=== PATIENT | female | born 1990 | race Caucasian/White ===

== ENCOUNTER 2025-05-13 14:22 | Outpatient (OUT) | payer OTHER, SELFPAY ==
--- OUTSIDE RECORDS SUMMARY | 2025-04-29 22:52 | XMS_ITS | Encounter Summary ---
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 (04/30/2025 12:02 AM EDT) PROLACTIN 8.2 3.3 - 26.7 ng/mL 04/30/2025 10:24 AM EDT [facility] Blood Venous blood / Unknown 04/30/2025 12:02 AM EDT 04/30/2025 12:05 AM EDT us Lisandro Frank MD LAB BLOOD ORDERABLES Final Res ult [facility] [address] [place] [address], [place] [phone] * Ethanol (04/30/2025 12:02 AM EDT) ETHANOL <0.010 <=0.080 g/dL 04/30/2025 12:24 AM EDT [facility] Comment: This report is intended for use in clinical monitoring or management of patients. Blood Venous blood / Unknown 04/30/2025 12:02 AM EDT 04/30/2025 12:05 AM EDT us Lisandro Frank MD LAB BLOOD ORDERABLES Final Res ult Performing Organization Address City/[facility]/ZIP Co de Phone Number [facility] [address] [place] [address], [place] * (ABNORMAL) Comprehensive metabolic panel (04/30/2025 12:02 AM EDT) SODIUM 136 134 - 146 mmol/L 04/30/2025 12:24 AM EDT [facility] POTASSIUM 3.9 3.5 - 5.0 mmol/L 04/30/2025 12:24 AM EDT [facility] CHLORIDE 109 98 - 109 mmol/L 04/30/2025 12:24 AM EDT [facility] CARBON DIOXIDE 21(L) 22 - 32 mmol/L 04/30/2025 12:24 AM EDT [facility] ANION GAP 6 5 - 15 mmol/L 04/30/2025 12:24 AM EDT [facility] BLOOD UREA NITROGEN 11 5 - 23 mg/dL 04/30/2025 12:24 AM EDT [facility] CREATININE 0.64 0.40 - 1.00 mg/dL 04/30/2025 12:24 AM EDT [facility] Comment:METHOD TRACEABLE TO [facility] STANDARD GLUCOSE 135(H) 65 - 99 mg/dL 04/30/2025 12:24 AM EDT [facility] CALCIUM 8.4(L) 8.5 - 10.5 mg/dL 04/30/2025 12:24 AM EDT [facility] TOTAL PROTEIN 6.6 6.0 - 8.0 g/dL 04/30/2025 12:24 AM EDT [facility] ALBUMIN 3.6 3.2 - 5.3 g/dL 04/30/2025 12:24 AM EDT [facility] ALKALINE PHOSPHATASE 61 39 - 130 U/L 04/30/2025 12:24 AM EDT [facility] AST 29 <=41 U/L 04/30/2025 12:24 AM EDT [facility] ALT 17 <=31 U/L 04/30/2025 12:24 AM EDT [facility] BILIRUBIN,TOTAL 0.4 0.3 - 1.2 mg/dL 04/30/2025 12:24 AM EDT [facility] EGFR Non-Race Dependent >90 >=60 ml/min/1.7 3sq.m 04/30/2025 12:24 AM EDT [facility] Comment: eGFR not reported due to non-numeric value for Creatinine. Reported eGFR is based on the CKD-EPI 202 equation that does not use a race coefficient. Blood Venous blood / Unknown 04/30/2025 12:02 AM EDT 04/30/2025 12:05 AM EDT us Lisandro Frakn MD LAB BLOOD ORDERABLES Final Res ult [facility] [address] [place] [address], [place] * (ABNORMAL) CBC auto differential (04/30/2025 12:02 AM EDT) WBC 9.4 4 - 11 x10E9/L 04/30/2025 12:20 AM EDT [facility] RBC Count 4.13 3.8 - 5.2 X10E12/L 04/30/2025 12:20 AM EDT [facility] Hemoglobin 13.2 11.7 - 15.5 g/dL 04/30/2025 12:20 AM EDT [facility] Hematocrit 39.1 35 - 47 % 04/30/2025 12:20 AM EDT [facility] MCV 95 80 - 100 fL 04/30/2025 12:20 AM EDT [facility] MCH 32.1 27 - 34 pg 04/30/2025 12:20 AM EDT [facility] MCHC 33.8 32 - 36 g/dL 04/30/2025 12:20 AM EDT [facility] RDW 13.2 11.5 - 15 % 04/30/2025 12:20 AM EDT [facility] Platelet Count 178 150 - 450 X10E9/L 04/30/2025 12:20 AM EDT [facility] MPV 9.1 7 - 12 fL 04/30/2025 12:20 AM EDT [facility] Neutrophils % 69.8 % 04/30/2025 12:20 AM EDT [facility] Lymphocytes % 18.3 % 04/30/2025 12:20 AM EDT [facility] Monocytes % 10.6 % 04/30/2025 12:20 AM EDT [facility] Eosinophils % 1.0 % 04/30/2025 12:20 AM EDT [facility] Basophils % 0.3 % 04/30/2025 12:20 AM EDT [facility] Neutrophils Absolute (A) 6.5 1.5 - 6.6 10*3/uL 04/30/2025 12:20 AM EDT [facility] Lymphocytes Absolute 1.7 1.0 - 3.5 10*3/uL 04/30/2025 12:20 AM EDT [facility] Monocytes Absolute 1.0(H) 0.0 - 0.9 10*3/uL 04/30/2025 12:20 AM EDT [facility] Eosinophils Absolute 0.1 0.0 - 0.4 10*3/uL 04/30/2025 12:20 AM EDT [facility] Basophils Absolute 0.0 0.0 - 0.2 10*3/uL 04/30/2025 12:20 AM EDT [facility] Differential Type AUTOMATED DIFFERENTIAL 04/30/2025 12:20 AM EDT [facility] Blood Venous blood / Unknown 04/30/2025 12:02 AM EDT 04/30/2025 12:05 AM EDT Lisandro Frank MD LAB BLOOD ORDERABLES Final Res ult [facility] [address] [place] [address], [place] * ECG 12 lead (04/29/2025 11:05 PM EDT) 04/29/2025 11:0 5 PM EDT Narrative [facility] - 04/30/2025 10:43 PM EDT Lisandro Frank MD ECG ORDERABLES Final Result [facility] documented in this encounter Visit Diagnoses Diagnosis Syncope, unspecified syncope type- Primary Seizure after head injury (CMS-HCC) Seizure after head injury (CMS-HCC) documented in this encounter Administered Medications Inactive Administered Medications - up to 3 most recent administrations Medication Order MAR Action Action Date Dose Rate Site ketorolac (TORADOL) injection 30 mg 30 mg, intravenous, Once, On Mon04/30/25 at 0045, For 1 dose, Look-alike/sound-alike medication - verify indication for use. Duration of therapy is not to exceed 5 days. Maximum recommended dose + 120mg/24 hours. Given 04/30/2025 1:00 AM EDT 30 mg LORazepam (ATIVAN) injection 1 mg 1 mg, intravenous, Once, On Mon04/29/25 at 2345, For 1 dose, Look-alike/sound-alike medication - verify indication for use;IV use requires increased monitoring of HR,BP,Respirations and Pulse Oximetry;For IV-dilute with equal volume PF sod chloride, Indication: Agitation Given 04/29/2025 11:52 PM EDT 1 mg sodium chloride 0.9 % bolus 1,000 mL, intravenous, at 984 mL/hr, Administer over 61 Minutes, Once, On Mon04/29/25 at 2345, For 1 dose New Bag 04/30/2025 12:18 AM EDT 1,000 mL 984 mL/hr documented in this encounter Active and Recently Administered Medications Times are shown in EDT. Scheduled Medication Order 04/28/2025 04/29/2025 04/30/2025 ketorolac (TORADOL) injection 30 mg (COMPLETED) 30 mg, intravenous, Once, On Mon04/30/25 at 0045, For 1 dose, Look-alike/sound-alike medication - verify indication for use. Duration of therapy is not to exceed 5 days. Maximum recommended dose + 120mg/24 hours. 0100 (Given - Provid er: Annette Marroquin RN) LORazepam (ATIVAN) injection 1 mg (COMPLETED) 1 mg, intravenous, Once, On Mon04/29/25 at 2345, For 1 dose, Look-alike/sound-alike medication - verify indication for use;IV use requires increased monitoring of HR,BP,Respirations and Pulse Oximetry;For IV-dilute with equal volume PF sod chloride, Indication: Agitation 2351 (Given - Provider: Margot Lozano, SLOANE) sodium chloride 0.9 % bolus (COMPLETED) 1,000 mL, intravenous, at 984 mL/hr, Administer over 61 Minutes, Once, On Mon04/29/25 at 2345, For 1 dose 0018 (New Bag - Provider: Margot Lozano RN)0124 (Stop Bag - Provider: Margot Lozano RN) documented in this encounter Additional Health Concerns Assessment Noted Time PHQ-9 Depression Total Score: 0 04/21/20 25 8:38 AM EDT documented as of this encounter Care Teams Central Service Technician Relationship Specialty Start Date End Date Maria Elena Sanchez APRN-ALBERT PCP - General Nurse Practitioner 11/04/24 documented as of this encounter
--- OUTSIDE RECORDS SUMMARY | 2025-05-05 14:30 | XMS_ITS | Encounter Summary ---
Author Organization [employer] Address [facility] [id number] [address] [place] [address] Care Team Providers Care Broadcast Producer Name Role Phone Maria Elena Sanchez APRN-ALBERT Primary Care Provider Reason for Referral * Consultation (Urgent) - Pending Review Specialty Diagnoses / Procedures Referred By Contac t Referred To Contact Neurology Diagnoses Witnessed seizure-like activity (CMS-HCC) Gregory Muñoz DO [address] [facility] [address], [place] [address] Phone: tel: fax: Jeanine Geiger MD [address] [place] [phone] Phone: tel: fax: Referral ID Status Reason Start Date Expiration Date Visits Requested Visits Authorized [id number] Pending Review Specialty Services Required 05/05/2025 05/05/2026 1 1 Reason for Visit * Reason Comments Er Follow-up seizure Encounter Details Date Type Department Care Team (Late st Contact Info) Description 05/05/2025 2:30 PM EDT Office Visit [facility] [address] [place] [address] Gregory Muñoz DO [address] [facility] [address], [place], [place] [id number] Witnessed seizure-like activity (CMS-HCC) (Primary Dx); Yeast infection; Facial dermatitis Social History Tobacco Use Types Packs/Day Years [...] 08/16/2024 PHQ-2 Answer Date Recorded Total Score 1 05/05/2025 PRAPARE - Transportation Answer Date Re corded [...] got money to buy more. Never True 05/05/2025 Within the past 12 months th e food we bought just didn't last and we didn't have money to get more. Never True 05/05/2025 Purpose - Life Answer Date Recorded Purpose [...] Sign Reading Time Taken Comments Blood Pressure 134/82 05/05/2025 2:47 PM EDT Pulse 83 05/05/2025 2:47 PM EDT Temperature 36.9 C (98.5 F) 05/05/2025 2:47 PM EDT Respiratory Rate - - Oxygen Saturation 99% 05/05/2025 2:47 PM EDT Inhaled Oxygen Concentration - - Weight 65.6 kg (144 lb 9.6 oz) 05/05/2025 2:47 P M EDT Height - - Body Mass Index 21.99 04/29/2025 10:55 PM EDT documented in this encounter Progress Notes * Gregory Muñoz, - 05/05/2025 2:30 PM EDT Images from the original note were not included. [facility] [address] [place] [address] [place] [address] Patient: Annia Lopez Date of : 1990 Encounter Date: 05/05/2025 Subjective: Chief Complaint Chief Complaint Patient presents with Er Follow-up seizure History of Present Illness Annia Lopez is a 35 y.o. female, established patient, that presents to the office for ED follow up for seizure. History provided by patient. Seizures This is a recurrent (Patient with a total of 3 episodes of seizure like activity with last episode occurring about 5 yrs ago and 1st about 5 yrs prior to that) problem. Episode onset: Last seizure on04/29/25. There were 2 to 3 seizures. Associated symptoms include headaches (Has been having headaches since she struck her head during seizure). Characteristics include loss of consciousness and bit tongue. Characteristics do not include bowel incontinence or bladder incontinence. 14 yr old daughter states that she was foaming at the mouth. She did fall off the bed striking her head The episode was Witnessed. There was The sensation of an aura present (Just prior to seizure she noticed that sensation of things flashing in front of her face. occurs just prior to seizure). There has been no fever. Review of Systems Review of Systems Gastrointestinal: Negative for bowel incontinence. Genitourinary: Negative for bladder incontinence. Neurological: Positive for seizures, loss of consciousness and headaches (Has been having headachessince she struck her head during seizure). Psychiatric/Behavioral: Had been having reaction with increase in amitriptyline as she decreased dose to 10 mg nightly and then increased dose which was causing tremors and difficulty sleeping. She states that Vital Signs BP 134/82 (BP Site: Right Arm, BP Postition: Sitting) Pulse 83 Temp 36.9 °C (98.5 °F) (Oral) Wt 65.6 kg (144 lb 9.6 oz) LMP 04/15/2025 (Exact Date) SpO2 99% BMI 21.99 kg/m² Physical Exam Physical Exam Vitals reviewed. Constitutional: General: She is not in acute distress. Appearance: She is not ill-appearing or toxic-appearing. HENT: Head: Normocephalic and atraumatic. Eyes: General: No scleral icterus. Extraocular Movements: Extraocular movements intact. Right eye: Normal extraocular motion and no nystagmus. Left eye: Normal extraocular motion and no nystagmus. Conjunctiva/sclera: Conjunctivae normal. Neck: Vascular: No carotid bruit. Cardiovascular: Rate and Rhythm: Normal rate and regular rhythm. Heart sounds: No murmur heard. Pulmonary: Effort: Pulmonary effort is normal. No accessory muscle usage or respiratory distress. Breath sounds: Normal breath sounds. No decreased breath sounds, wheezing, rhonchi or rales. Musculoskeletal: Cervical back: Neck supple. Lymphadenopathy: Cervical: No cervical adenopathy. Neurological: General: No focal deficit present. Mental Status: She is alert. GCS: GCS eye subscore is 4. GCS verbal subscore is 5. GCS motor subscore is 6. Cranial Nerves: No cranial nerve deficit or facial asymmetry. Motor: No weakness, tremor or abnormal muscle tone. Deep Tendon Reflexes: Reflex Scores: Tricep reflexes are 2+ on the right side and 2+ on the left side. Bicep reflexes are 2+ on the right side and 2+ on the left side. Brachioradialis reflexes are 2+ on the right side and 2+ on the left side. Past Medical, Family, Surgery and Social History Past Medical History: Diagnosis Date Allergic Anxiety Back pain Constipation during in second trimester 11/07/2017 Crohn disease ([facility]-HCC) Generalized anxiety disorder with panic attacks 09/11/2023 History of UTI 11/07/2017 Major depressive disorder Mild intermittent asthma with acute exacerbation 09/11/2023 Mild tetrahydrocannabinol (THC) abuse 11/28/2017 PONV (postoperative nausea and vomiting) PTSD (post-traumatic stress disorder) Seizures (CMS-HCC) Past Surgical History: Procedure Laterality Date ABCESS DRAINAGE APPENDECTOMY COLONOSCOPY BIOPSY N/A 09/24/2024 Performed by Faisal Garay MD at [facility] ENDOSCOPY HEMORRHOIDECTOMY N/A 09/19/2019 Performed by Gregory Weller DO at [facility] for abscess Family History Problem Relation Age of Onset Seizures Mother Endometriosis Mother Hypertension Father Hyperlipidemia Father Diabetes Maternal Grandmother Social History Socioeconomic History Marital status: Single Spouse name: Not on file Number of children: Not on file Years of education: Not on file Highest education level: Not on file Occupational History Not on file Tobacco Use Smoking status: Former Current packs/day: 0.00 Types: Cigarettes Smokeless tobacco: Never Tobacco comments: Currently vapes Vaping Use Vaping status: Every Day Substances: Nicotine Devices: Disposable Substance and Sexual Activity Alcohol use: Yes Comment: occcasional Drug use: No Sexual activity: Yes Partners: Male control/protection: None Other Topics Concern Not on file Social History Narrative Not on file Social Drivers of Health Financial Resource Strain: Medium Risk (08/16/2024) Overall Financial Resource Strain (CARDIA) Difficulty of Paying Living Expenses: Somewhat hard Food Insecurity: No Food Insecurity (05/05/2025) Hunger Screening Food Insecurity - Worry: Never True Food Insecurity - Inability: Never True Transportation Needs: No Transportation Needs (08/16/2024) PRAPARE - Transportation Lack of Transportation (Medical): No Lack of Transportation (Non-Medical): No Physical Activity: Not on file Stress: Not on file Social Connections: Not on file Interpersonal Safety: Not on file Housing Instability: Low Risk (08/16/2024) Housing Instability Housing Instability: No Allergies and Current Medications No Known Allergies Current Outpatient Medications on File Prior to Visit Medication Sig acetaminophen (TYLENOL EXTRA STRENGTH) 500 mg tablet Take 2 tablets (1,000 mg total) by mouth every6 (six) hours as needed for pain. albuterol (PROVENTIL HFA;VENTOLIN HFA) 90 mcg/actuation inhaler Inhale 2 puffs as needed. amitriptyline (ELAVIL) 25 mg tablet Take 1 tablet (25 mg total) by mouth nightly. hyoscyamine (LEVSIN) 0.125 mg SL tablet DISSOLVE 1 TABLET(125 MCG) UNDER THE TONGUE EVERY 4 HOURS NEEDED FOR CRAMPING ibuprofen (MOTRIN) 800 mg tablet Take 1 tablet (800 mg total) by mouth every 6 (six) hours as needed for pain. loratadine (CLARITIN) 10 mg tablet Take 1 tablet (10 mg total) by mouth in the morning. loratadine-pseudoephedrine (CLARITIN-D 24-hour) 10-240 mg per 24 hr tablet Take 1 tablet by mouth in the morning. LORazepam (ATIVAN) 0.5 mg tablet Take 1 tablet (0.5 mg total) by mouth every 8 (eight) hours as needed for anxiety for up to 14 days. ondansetron ODT (ZOFRAN ODT) 4 mg disintegrating tablet Dissolve 1 tablet (4 mg total) on tongue every 8 (eight) hours as needed for nausea for up to 10 doses. phenazopyridine (PYRIDIUM) 100 mg tablet Take 1 tablet (100 mg total) by mouth 3 (three) times a day as needed. zolpidem (AMBIEN) 5 mg tablet Take 1 tablet (5 mg total) by mouth nightly as needed for sleep. No current facility-administered medications on file prior to visit. Labs and Imaging Lab Results Component Value Date WBC 9.4 04/30/2025 HGB 13.2 04/30/2025 HCT 39.1 04/30/2025 PLT 178 04/30/2025 ALT 17 04/30/2025 AST 29 04/30/2025 K 3.9 04/30/2025 CL 109 04/30/2025 CREATININE 0.64 04/30/2025 BUN 11 04/30/2025 CO2 21 (L) 04/30/2025 TSH 0.30 (L) 02/18/2020 CT brain without contrast STUDY: CT BRAIN WO CONT INDICATION: seizure. [...] cells are broadly clear. No evidence of aggressiveosseous lesion. IMPRESSION: * No acute intracranial abnormality, by CT. Epileptogenic foci are better assessed with MRI if clinically warranted. Approved by Resident Pavan Sahni MD on 04/30/2025 12:24 AM I, Matty Woodard MD have personally reviewed the image(s) and agree with and/or edited the report Finalized by Matty Woodard MD on 04/30/2025 12:28 AM Assessment/Plan: 1. Witnessed seizure-like activity (CMS-HCC) - [facility] [place], [place]; Future 2. Yeast infection - fluconazole (DIFLUCAN) 150 mg tablet; Take 1 tablet (150 mg total) by mouth once for 1 dose. Repeat again in 4 days Dispense: 1 tablet; Refill: 0 3. Facial dermatitis - hydrocortisone (HYTONE) 1 % cream; Apply 1 Application topically in the morning and 1 Applicationbefore bedtime. Do all this for 7 days. Dispense: 20 g; Refill: 1 Yeast infection Prescribed fluconazole 150 mg 1 tablet x1 dose. Repeat in 4 days if symptoms still present As patient had recently been on antibiotics Facial dermatitis Apply 1% hydrocortisone cream topically to face twice daily for 7 days and then stop medication Witnessed seizure-like activity (CMS-HCC) Patient with seizure-like activity and was evaluated in the emergency room on May 01, 2025. This is patient's third episode of of seizure-like activity in the past 15 years. Patient with scheduled EEG tomorrow. Discussed with patient that as this is the third episode she would benefit from seeing Neurology to help determine whether prophylaxis with seizure medication would be beneficial. Follow-up: Keep June 20, 2025 appointment - Gregory Muñoz DO 05/05/25 5:13 PM documented in this encounter Miscellaneous Notes * Assessment & Plan Note - Gregory Muñoz DO - 05/05/2025 5:13 PM EDT Associated Problem(s): Witnessed seizure-like activity (CMS-HCC) Patient with seizure-like activity and was evaluated in the emergency room on May 01, 2025. This is patient's third episode of of seizure-like activity in the past 15 years. Patient with scheduled EEG tomorrow. Discussed with patient that as this is the third episode she would benefit from seeing Neurology to help determine whether prophylaxis with seizure medication would be beneficial. * Assessment & Plan Note - Gregory Muñoz DO - 05/05/2025 5:10 PM EDT Associated Problem(s): Facial dermatitis Apply 1% hydrocortisone cream topically to face twice daily for 7 days and then stop medication * Assessment & Plan Note - Gregory Muñoz DO - 05/05/2025 5:09 PM EDT Associated Problem(s): Yeast infection Prescribed fluconazole 150 mg 1 tablet x1 dose. Repeat in 4 days if symptoms still present As patient had recently been on antibiotics documented in this encounter Plan of Treatment Upcoming Encounters Date Type Department Care Team (Late st Contact Info) Description 05/14/2025 1:00 PM EDT Office Visit [facility] [place] [address] [place] [address] Gibran Garrett, ISHA [address] [facility] [address] [place] [id number] 06/20/2025 9:20 AM EDT Telemedicine [facility] [address] [place] [address] Maria Elena Sanchez APRN-CNP [address] [place] [id number] Scheduled Referrals Name Type Priority Associated Diagnoses Order Schedule [facility] [place], [place] Outpatient Referral Routine Witnessed seizure-like activity ([facility]-HCC) 1 Occurrences starting 05/05/2025 until 05/05/2026 documented as of this encounter Visit Diagnoses Diagnosis Witnessed seizure-like activity (CMS-HCC)- Primary Yeast infection Facial dermatitis documented in this encounter Additional Health Concerns Assessment Noted Time PHQ-9 Depression Total Score: 1 05/05/20 25 2:45 PM EDT documented as of this encounter Care Teams Broadcast Producer Relationship Specialty Start Date End Date Maria Elena Sanchez APRN-ALBERT PCP - General Nurse Practitioner 11/04/24 documented as of this encounter
--- OUTSIDE RECORDS SUMMARY | 2025-05-06 13:00 | XMS_ITS | Encounter Summary ---
Author Organization [facility] tem Address [facility] [id number] [address] [place] [address] Care Team Providers Care Control Room Operator Name Role Phone Maria Elena Sanchez APRN-GLACIOLOGIST Primary Care Provider Reason for Referral * Neurology (Routine) - Pending Review Specialty Diagnoses / Procedures Referred By Contac t Referred To Contact Diagnoses Seizure after head injury ([facility]) Procedures EEG Amadeo Dumont MD [address] [place] [address] Phone: tel: fax: Referral ID Status Reason Start Date Expiration Date V isits Requested Visits Authorized [id number] Pending Review 04/30/2025 04/30/2026 1 1 Reason for Visit * Neurology (Routine) - Pending Review Specialty Diagnoses / Procedures Referred By Contac t Referred To Contact Diagnoses Seizure after head injury ([facility]) Procedures EEG Amadeo Dumont MD [address] [place] [address] Phone: tel: fax: Referral ID Status Reason Start Date Expiration Date V isits Requested Visits Authorized [id number] Pending Review 04/30/2025 04/30/2026 1 1 Encounter Details Date Type Department Care Team (Latest Contact Info) Description 05/06/2025 1:00 PM EDT - 05/06/2025 11:59 PM EDT Hospital Encounter [facility] - Neurophysiology [address] [place] [phone] Amadeo Dumont MD [address] [place] [address] Seizure after head injury ([facility]) Discharge Disposition: Home Social History Tobacco Use [...] PM EDT documented as of this encounter Medications at Time of Discharge [...] as needed for sleep. 30 tablet 04/14/2025 hydrocortisone (HYTONE) 1 % creamIndications:Fa cial dermatitis Apply 1 Application topically in the morning and 1 Application before bedtime. Do all this for 7 days. 20 g 1 05/05/2025 05/12/20 25 documented as of this encounter Plan of Treatment Upcoming Encounters Date Type Department Care Team (Late st Contact Info) Description 05/14/2025 1:00 PM EDT Office Visit [facility] [place] [address] [place] [phone] Gibran Garrett PA-C [address] [facility] [address] [place] [address] 06/20/2025 9:20 AM EDT Telemedicine [facility] [address] [place] [address] [address] Maria Elena Sanchez, MANAGER TRADING-GLACIOLOGIST [address] [place] [address] documented as of this encounter Procedures Procedure Name Priority Date/Time Associated Diagnosis Comments EEG Routine 05/06/2025 2:35 PM EDT Seizure after head injury (CMS-HCC) documented in this encounter Results * EEG (05/06/2025 2:35 PM EDT) Narrative MANUALLY TRANSCRIBED RESULTS - 05/06/2025 2:52 PM EDT Images from the original result were not included. [place] Routine EEG Report Length of Study: 30 [...] Clinical correlation is recommended. Kylah Motley MD [place] Neu[facility] us Amadeo Dumont MD NEUROLOGY ORDERABLES Final Resu lt MANUALLY TRANSCRIBED RESULTS documented in this encounter Visit Diagnoses Diagnosis Seizure after head injury (CMS-HCC) documented in this encounter Additional Health Concerns Assessment Noted Time PHQ-9 Depression Total Score: 1 05/05/20 25 2:45 PM EDT documented as of this encounter Care Teams Control Room Operator Relationship Specialty Start Date End Date Maria Elena Sanchez APRN-CNP PCP - General Nurse Practitioner 11/04/24 documented as of this encounter
--- OUTSIDE RECORDS SUMMARY | 2025-05-13 14:31 | XMS_ITS | Encounter Summary ---
Author Organization [employer] tem Address [id number] [address] [place] [address] Care Team Providers Care Rn Telephone Triage Name Role Phone Maria Elena Sanchez LOAD HAUL DUMP OPERATOR-LOGGING SPECIALIST Primary Care Provider Reason for Visit * Reason Comments Med Refill Encounter Details Date Type Department Care Team (Late st Contact Info) Description 11/11/2024 Refill [facility] [address] [place] [address] Maria Elena Sanchez APRN-CNP [address], [facility] [place] [address] Psychophysiological insomnia Social History Tobacco Use Types Packs/Day Years [...] 08/16/2024 PHQ-2 Answer Date Recorded Total Score 9 08/16/2024 PRAPARE - Transportation Answer Date Re corded [...] got money to buy more. Never True 11/04/2024 Within the past 12 months th e food we bought just didn't last and we didn't have money to get more. Never True 11/04/2024 Purpose - Life Answer Date Recorded Purpose and direction in life Unknown Comments No Sex and Gender Information Value Date Recorded Sex Assigned at Female 02/08/2024 9:42 PM EDT Legal Sex Female 1:40 PM EDT Gender Identity Female 02/08/2024 9:42 PM EDT Sexual Orientation Straight 02/08/2024 9: 42 PM EDT documented as of this encounter Plan of Treatment Upcoming Encounters Date Type Department Care Team (Late st Contact Info) Description 05/14/2025 1:00 PM EDT Office Visit [facility] [place] [address] [place] [address] Gibran Garrett, PA-C [address] [facility] [address] [place] [phone] 06/20/2025 9:20 AM EDT Telemedicine [facility] [address] [place] [address] Maria Elena Sancehz APRN-CNP [address] [place] [address] documented as of this encounter Visit Diagnoses Diagnosis Psychophysiological insomnia Persistent disorder of initiating or maintaining sleep documented in this encounter Additional Health Concerns Assessment Noted Time PHQ-9 Depression Total Score: 9 08/16/20 24 8:57 AM EDT documented as of this encounter Care Teams Rn Telephone Triage Relationship Specialty Start Date End Date Maria Elena Sanchez APRN-CNP PCP - General Nurse Practitioner 11/04/24 documented as of this encounter
--- OUTSIDE RECORDS SUMMARY | 2025-05-13 14:31 | XMS_ITS | Encounter Summary ---
Author Organization [employer] tem Address [id number] [address] [place] [address] Care Team Providers Care Adult High School Instructor Name Role Phone Maria Elena Sanchez APRN-COTTON JAMMER Primary Care Provider Encounter Details Date Type Department Care Team (Late st Contact Info) Description 08/06/2024 Telephone [facility] [address] [address] [place] [address] Nida Dodge CMA Social History Tobacco Use Types Packs/Day Years Used Date Smoking Tobacco: Former Cigarettes Smokeless Tobacco: Never Alcohol Use Standard Drinks/Week Comments No 0 (1 standard drink = 0.6 oz pur e alcohol) occcasional PHQ-2 Answer Date Recorded Total Score 9 01/22/2024 Childcare Answer Date Recorded Childcare Unknown 04/15/2019 Employment Answer Date Recorded Employment Unknown 04/15/2019 Hunger Screening Answer Date Recorded Within the past 12 months we worried whether our food would run out before we got money to buy more. Never True 07/26/2024 Within the past 12 months th e food we bought just didn't last and we didn't have money to get more. Never True 07/26/2024 Purpose - Life Answer Date Recorded Purpose and direction in life Unknown Comments No Sex and Gender Information Value Date Recorded Sex Assigned at Female 02/08/2024 9:42 PM EDT Legal Sex Female 1:40 PM EDT Gender Identity Female 02/08/2024 9:42 PM EDT Sexual Orientation Straight 02/08/2024 9: 42 PM EDT documented as of this encounter Miscellaneous Notes * Telephone Encounter - Nida Dodge CMA - 08/06/2024 3:47 PM EDT Patient called to reschedule her colonoscopy due unable to take time off work Please Cancel colonoscopy for 08/08/2024 She would like to reschedule in about 3-4 weeks * Telephone Encounter - Denise Christy - 08/06/2024 3:47 PM EDT CLN 08/08 removed from schedule, lvm for pt to call to reschedule * Telephone Encounter - Denise Christy - 08/06/2024 3:47 PM EDT Lvm for pt to reschedule colonoscopy * Telephone Encounter - Denise Christy - 08/06/2024 3:47 PM EDT Left message for pt to call to reschedule colonoscopy * Telephone Encounter - Denise Christy - 08/06/2024 3:47 PM EDT CLN ASA 2 (ENDO) rescheduled with pt over the phone, 09/19/24 9:30am, updated instructions sen to pt mychart, prep sent to Linsey Crawfordt. documented in this encounter Plan of Treatment Upcoming Encounters Date Type Department Care Team (Late st Contact Info) Description 05/14/2025 1:00 PM EDT Office Visit [facility] [place] [address] [place] [address] Gibran Garrett, PA-C [address], [address] [place] [address] 06/20/2025 9:20 AM EDT Telemedicine [facility] [address] [place] [address] Maria Elena Sanchez APRN-CNP [address] [place] [address] documented as of this encounter Visit Diagnoses Not on filedocumented in this encounter Additional Health Concerns Infection Onset Date Last Indicated Resolved Time COVID-19 Rule-Out 10/04/2024 10/04/2024 10/04/2024 11:15 AM EST Assessment Noted Time PHQ-9 Depression Total Score: 9 01/22/20 11:20 AM EDT documented as of this encounter Care Teams Adult High School Instructor Relationship Specialty Start Date End Date Maria Elena Sanchez APRN-CNP PCP - General Nurse Practitioner 11/04/24 documented as of this encounter
--- OUTSIDE RECORDS SUMMARY | 2025-05-13 14:31 | XMS_ITS | Encounter Summary ---
Author Organization [employer] tem Address [id number] [address] [place] [address] Care Team Providers Care Risk Management Internship Name Role Phone Maria Elena Sanchez APRN-GREASE REFINING SUPERVISOR Primary Care Provider Encounter Details Date Type Department Care Team (Late st Contact Info) Description 08/01/2024 Orders Only [facility] [address] [place] [address] Macrina Martinez RMA Right shoulder pain, unspecified chronicity Social History Tobacco Use Types Packs/Day Years [...] PM EDT Office Visit [facility] [place] [address] [place] [phone] Gibran Garrett PA-C [address] [facility] [address] [place] [address] 06/20/2025 9:20 AM EDT Telemedicine [facility] [address] [facility] [address] Maria Elena Sanchez APRN-CNP [address] [place], [place] [address] documented as of this encounter Procedures Procedure Name Priority Date/Time Associated Diagnosis Comments AMB REFERRAL TO ORTHOPEDIC SURGERY Routine 07/24/2024 Right shoulder pain, unspecified chronicity documented in this encounter Results * Ambulatory referral to Orthopedic Surgery (07/24/2024) 07/24/2024 Maria Elena LUND OUTPATIENT REFERRAL ORD ERABLES Final Result MANUALLY TRANSCRIBED RESULTS documented in this encounter Visit Diagnoses Diagnosis Right shoulder pain, unspecified chronicity documented in this encounter Additional Health Concerns Infection Onset Date Last Indicated Resolved Time COVID-19 Rule-Out 10/04/2024 10/04/2024 10/04/2024 11:15 AM EST Assessment Noted Time PHQ-9 Depression Total Score: 9 01/22/20 11:20 AM EDT documented as of this encounter Care Teams Risk Management Internship Relationship Specialty Start Date End Date Maria Elena Sanchez APRN-CNP PCP - General Nurse Practitioner 11/04/24 documented as of this encounter
--- OUTSIDE RECORDS SUMMARY | 2025-05-13 14:31 | XMS_ITS | Encounter Summary ---
Author Organization [employer] tem Address [id number] [address] [place] [address] Care Team Providers Care Executive Services Administrator Name Role Phone Maria Elena Sanchez APRN-TRUST CLERK Primary Care Provider Encounter Details Date Type Department Care Team (Late st Contact Info) Description 07/04/2024 Telephone [employer] [facility] [address] [place] [address] [place] [address] Meeta Cosme CNA Social History Tobacco Use Types Packs/Day Years [...] got money to buy more. Never True 10/16/2023 Within the past 12 months th e food we bought just didn't last and we didn't have money to get more. Never True 10/16/2023 Purpose - Life Answer Date Recorded Purpose and direction in life Unknown Comments Unknown Sex and Gender Information Value Date Recorded Sex Assigned at Female 02/08/2024 9:42 PM EDT Legal Sex Female 1:40 PM EDT Gender Identity Female 02/08/2024 9:42 PM EDT Sexual Orientation Straight 02/08/2024 9: 42 PM EDT documented as of this encounter Miscellaneous Notes * Telephone Encounter - Meeta Cosme CNA - 07/04/2024 3:33 PM EDT Annia called office to inform provider that while in ER a month ago they recommended a referral tospecialist for her colon. And she went to ER for Rt shoulder pain and is wanting to know if a referral can be placed for this pain or if provider would like to see her to evaluate I. Please Advise. * Telephone Encounter - ASHELY Nash - 07/04/2024 3:33 PM EDT Referrals placed documented in this encounter Plan of Treatment Upcoming Encounters Date Type Department Care Team (Late st Contact Info) Description 05/14/2025 1:00 PM EDT Office Visit [facility] [place] [address] [place] [address] Gibran Garrett, ISHA [address] [facility] [address] [place] [address] 06/20/2025 9:20 AM EDT Telemedicine [facility] [address] [place] [address] Maria Elena Sanchez APRN-CNP [address] [place] [address] documented as of this encounter Visit Diagnoses Not on filedocumented in this encounter Additional Health Concerns Infection Onset Date Last Indicated Resolved Time COVID-19 Rule-Out 10/04/2024 10/04/2024 10/04/2024 11:15 AM EST Assessment Noted Time PHQ-9 Depression Total Score: 9 01/22/20 24 11:20 AM EDT documented as of this encounter Care Teams Executive Services Administrator Relationship Specialty Start Date End Date Maria Elena Sanchez APRN-CNP PCP - General Nurse Practitioner 11/04/24 documented as of this encounter
--- OUTSIDE RECORDS SUMMARY | 2025-05-13 14:31 | XMS_ITS | Encounter Summary ---
Author Organization [employer] tem Address [facility] [id number] [address] [place] [address] Care Team Providers Care Marbleizing Machine Tender Name Role Phone Maria Elena Sanchez JARAD-THIRD HELPER Primary Care Provider Encounter Details Date Type Department Care Team (Late st Contact Info) Description 10/22/2024 Refill [facility] [address] [place] [address] [place] [address] Vicki Lemus CMA Generalized anxiety disorder with panic attacks Social History Tobacco Use Types Packs/Day Years [...] got money to buy more. Never True 10/04/2024 Within the past 12 months th e food we bought just didn't last and we didn't have money to get more. Never True 10/04/2024 Purpose - Life Answer Date Recorded Purpose [...] PM EDT Office Visit [facility] [address] [phone] Gibran Garrett, LEWISC [address] [facility] [address] [place] [address] 06/20/2025 9:20 AM EDT Telemedicine [facility] [address] [place] [address] Maria Elena Sanchez APRN-CNP [address] [place] [address] documented as of this encounter Visit Diagnoses Diagnosis Generalized anxiety disorder with panic attacks documented in this encounter Additional Health Concerns Assessment Noted Time PHQ-9 Depression Total Score: 9 08/16/20 24 8:57 AM EDT documented as of this encounter Care Teams Marbleizing Machine Tender Relationship Specialty Start Date End Date Maria Elena Sanchez APRN-CNP PCP - General Nurse Practitioner 11/04/24 documented as of this encounter
--- OUTSIDE RECORDS SUMMARY | 2025-05-13 14:32 | XMS_ITS | Encounter Summary ---
Author Organization [employer] tem Address [id number] [address] [place] [address] Care Team Providers Care Business Systems Manager Name Role Phone Maria Elena Sanchez JARAD-SENIOR BENEFITS SPECIALIST Primary Care Provider Encounter Details Date Type Department Care Team (Latest Contact Info) Description 05/04/2025 Travel Social History Tobacco Use Types Packs/Day Years [...] PM EDT Office Visit [facility] [place] [address] [place] [phone] Gibran Garrett PA-C [address] [facility] [address] [place] [address] 06/20/2025 9:20 AM EDT Telemedicine [facility] [address] [place] [address] Maria Elena Sanchez APRN-CNP [address] [place] [address] documented as of this encounter Visit Diagnoses Not on filedocumented in this encounter Additional Health Concerns Assessment Noted Time PHQ-9 Depression Total Score: 0 04/21/20 25 8:38 AM EDT documented as of this encounter Care Teams Business Systems Manager Relationship Specialty Start Date End Date Maria Elena aSnchez APRN-CNP PCP - General Nurse Practitioner 11/04/24 documented as of this encounter
--- OUTSIDE RECORDS SUMMARY | 2025-05-13 14:32 | XMS_ITS | Encounter Summary ---
Author Organization [facility] [employer] tem Address [id number] [address] [place] [address] Care Team Providers Care Roadway Engineer Name Role Phone Maria Elena Sanchez APRN-CHARGE LPN Primary Care Provider Reason for Visit * Reason Onset Date Comments Med Refill 04/04/2025 Encounter Details Date Type Department Care Team (Late st Contact Info) Description 04/04/2025 Refill [facility] [address] [place] [address] Maria Elena Sanchez APRN-CNP [address], [facility] [place] [address] Social History Tobacco Use Types Packs/Day Years [...] PHQ-2 Answer Date Recorded Total Score 0 03/24/2025 PRAPARE - Transportation Answer Date Re corded [...] got money to buy more. Never True 03/24/2025 Within the past 12 months th e food we bought just didn't last and we didn't have money to get more. Never True 03/24/2025 Purpose - Life Answer Date Recorded Purpose [...] PM EDT Office Visit [facility] [place] [address] [place] [address] Gibran Garrett, ISHA [address] [facility] [address] [place] [address] 06/20/2025 9:20 AM EDT Telemedicine [facility] [address] [facility] [place] [address] Maria Elena Sanchez APRN-CNP [address] [place] [address] documented as of this encounter Visit Diagnoses Not on filedocumented in this encounter Additional Health Concerns Assessment Noted Time PHQ-9 Depression Total Score: 0 03/24/20 25 10:16 AM EDT documented as of this encounter Care Teams Roadway Engineer Relationship Specialty Start Date End Date Maria Elena Sanchez APRN-CNP PCP - General Nurse Practitioner 11/04/24 documented as of this encounter
--- OUTSIDE RECORDS SUMMARY | 2025-05-13 14:32 | XMS_ITS | Encounter Summary ---
Author Organization [employer] tem Address [facility] [place]-[id number] [address] [place] [address] Care Team Providers Care Jewel Corner Brushing Machine Operator Name Role Phone Maria Elena Sanchez TURNER MACHINE-MOLDING CUTTER Primary Care Provider Reason for Visit * Reason Comments Med Refill Encounter Details Date Type Department Care Team (Late st Contact Info) Description 03/10/2024 Refill [facility] [address] [place] [address] Maria Elena Sanchez APRN-CNP [address], [facility] [place] [address] Psychophysiological insomnia Social History Tobacco [...] PM EDT Office Visit [facility] [place] [address] [place] [phone] Gibran Garrett PA-C [address] [facility], [facility] [address] [place] [address] 06/20/2025 9:20 AM EDT Telemedicine [facility] [address] [facility] [place] [address] Maria Elena Sanchez APRN-CNP [address] [place] [address] documented as of this encounter Visit Diagnoses Diagnosis Psychophysiological insomnia Persistent disorder of initiating or maintaining sleep documented in this encounter Additional Health Concerns Infection Onset Date Last Indicated Resolved Time COVID-19 Rule-Out 10/04/2024 10/04/2024 10/04/2024 11:15 AM EST Assessment Noted Time PHQ-9 Depression Total Score: 9 01/22/20 24 11:20 AM EDT documented as of this encounter Care Teams Jewel Corner Brushing Machine Operator Relationship Specialty Start Date End Date Maria Elena Sanchez APRN-CNP PCP - General Nurse Practitioner 11/04/24 documented as of this encounter
--- OUTSIDE RECORDS SUMMARY | 2025-05-13 14:32 | XMS_ITS | Clinical Summary ---
Author Organization [facility] Address [address] [place] [address] Care Team Providers Care Oil And Gas Drafter Name Role Phone Elsa Chiu MD Primary Care Provider [phone] Allergies No known active allergies Medications Ethinyl Estradiol-Norel gestrom (XULANE) 150-35 mcg/24 hr Apply 1 Patch as directed once each week. Active albuterol HFA (PROVENTIL HFA, VENTOLIN HFA) 90 mcg/actuation inhaler Inhale 2 Puffs as instructed every 4 hours as needed. Active Family History Medical History Relation Comments Breast Cancer Other maternal great a unt Esophageal Cancer [Other] Other matern al great grandfather Relation Status Comments Other Social History Tobacco Use Types Packs/Day Years Used Date Smoking Tobacco: Every Day Cigarettes Alcohol Use Standard Drinks/Week Comments Yes 0 (1 standard drink = 0.6 oz pur e alcohol) 3 times a month Comments No Sex and Gender Information Value Date Recorded Sex Assigned at Not on file Legal Sex Female 2:09 PM EDT Gender Identity Not on file Sexual Orientation Not on file Last Filed Vital Signs Vital Sign Reading Time Taken Comments Blood Pressure 109/62 03/09/2015 12:56 PM EDT Pulse 77 03/09/2015 12:56 PM EDT Temperature 36.8 C (98.3 F) 03/09/2015 12:56 PM EDT Respiratory Rate - - Oxygen Saturation 97% 03/09/2015 12: 56 PM EDT Inhaled Oxygen Concentration - - Weight 64.3 kg (141 lb 12.8 oz) 015 12:56 PM EDT Height 172.7 cm (5' 8 ) 03/09/2015 12:5 6 PM EDT Body Mass Index 21.56 03/09/2015 12:56 PM EDT Plan of Treatment Health Maintenance Due Date Last Done Comments Anxiety Screening 2009 Depression Screening 2009 HIV Screening 2009 Hepatitis C Screening 2009 DTaP,Tdap,Td Vaccine (1 - Tdap) 2010 Hepatitis B Vaccine (1 of 3 - 19+ 3-dose series) 04/24 Cervical Cancer Screening 2012 Covid-19 Vaccine (1 - 2023- season) 2024 Influenza Vaccine (#1) 2025 [address] [place] [address] [employer] OPEN ACCESS [employer] SELECT Care Teams Oil And Gas Drafter Relationship Specialty Start Date End Date Elsa Chiu MD [address] [place] [address] PCP - General Family Medicine 03/02/15
--- OUTSIDE RECORDS SUMMARY | 2025-05-13 14:32 | XMS_ITS | Encounter Summary ---
Author Organization [employer] tem Address [facility] [place]-[id number] [address] [place] [address] Care Team Providers Care Fusion Juncture Grinder Name Role Phone SanchezPhuong leeanup ABRAHAM-YARD HOSTLER Primary Care Provider Encounter Details Date Type Department Care Team (Late st Contact Info) Description 09/25/2024 Telephone [facility] [address] [place] [address] [place] [address] Ranjan Amaral CMA Social History Tobacco Use Types Packs/Day [...] got money to buy more. Never True 09/09/2024 Within the past 12 months th e food we bought just didn't last and we didn't have money to get more. Never True 09/09/2024 Purpose - Life Answer Date Recorded Purpose and direction in life Unknown Comments No Sex and Gender Information Value Date Recorded Sex Assigned at Female 02/08/2024 9:42 PM EDT Legal Sex Female 1:40 PM EDT Gender Identity Female 02/08/2024 9:42 PM EDT Sexual Orientation Straight 02/08/2024 9: 42 PM EDT documented as of this encounter Miscellaneous Notes * Telephone Encounter - Ranjan Amaral CMA - 09/25/2024 8:17 AM EST Patient called into office worried because she had mistakenly taken FOUR Effexor xr 150 mg tablets at once. Patient stated that she had meant to take her Tylenol extra strength and the labels looked the same. Patient was advised to call poison control (number was given to patient) or to head over to the Emergency Room to seek medical attention. Patient stated she had just missed two days of work due to a colonoscopy and did not want to miss anymore work. But stated she understood to call poison control. Patients provider was notified about the situation and stated the same thing, to either go to the ER of to call poison control and they would direct her accordingly. * Telephone Encounter - ASHELY Nash - 09/25/2024 8:17 AM EST Thank you. documented in this encounter Plan of Treatment Upcoming Encounters Date Type Department Care Team (Late st Contact Info) Description 05/14/2025 1:00 PM EDT Office Visit [facility] [place] [phone] Gibran Garrett, ISHA [address] [facility] [address] [place] [address] 06/20/2025 9:20 AM EDT Telemedicine [facility] [address] [place] [address] Maria Elena Sanchez APRN-CNP [address] [place] [address] documented as of this encounter Visit Diagnoses Not on filedocumented in this encounter Additional Health Concerns Infection Onset Date Last Indicated Resolved Time COVID-19 Rule-Out 10/04/2024 10/04/2024 10/04/2024 11:15 AM EST Assessment Noted Time PHQ-9 Depression Total Score: 9 08/16/20 8:57 AM EDT documented as of this encounter Care Teams Fusion Juncture Grinder Relationship Specialty Start Date End Date Maria Elena Sanchez APRN-CNP PCP - General Nurse Practitioner 11/04/24 documented as of this encounter
--- OUTSIDE RECORDS SUMMARY | 2025-05-13 14:32 | XMS_ITS | Encounter Summary ---
Author Organization [facility] tem Address [facility] [id number] [address] [place] [address] Care Team Providers Care Technology Teacher Name Role Phone Maria Elena Sanchez APRN-ALBERT Primary Care Provider Encounter Details Date Type Department Care Team (Late st Contact Info) Description 05/06/2025 Telephone [facility] A [facility] of [facility] [address] [facility] [address] [place] [address] Marisela Hartley Social History Tobacco Use Types Packs/Day Years [...] encounter Miscellaneous Notes * Telephone Encounter - Marisela Hartley - 05/06/2025 8:20 AM EDT Received new patient referral. Please call patient to schedule a new patient appointment for Witnessed seizure-like activity IS THIS DUE TO AN ACCIDENT? IS THIS WORKER'S COMP? PLEASE VERIFY IF THIS IS WORKERS COMP AND DOCUMENT (We do not accept any new workers comp cases) WHAT INSURANCE? HAVE YOU EVER BEEN SEEN BY A NEUROLOGIST BEFORE? * Telephone Encounter - Lidya Hussein - 05/06/2025 8:20 AM EDT 1st attempt: Called and left patient a voicemail letting them know we have received their referral,are ready to schedule, and to call us back at their earliest convenience to do so. Math And Sciences Department Chair provided callback number for scheduling or to address any questions or concerns they may have. * Telephone Encounter - Lidya Hussein - 05/06/2025 8:20 AM EDT Please ask the following questions to the new patient that you are schedulin. IS THIS DUE TO AN ACCIDENT? -No 2. IS THIS WORKER'S COMP? PLEASE VERIFY IF THIS IS WORKERS COMP AND DOCUMENT (We do not accept any new workers comp cases) -No 3. WHAT INSURANCE? -[place] Medicaid 4. HAVE YOU EVER BEEN SEEN BY A NEUROLOGIST BEFORE? IF YES, WHO AND WHEN? IS THIS A SECOND OPINION? -No 5. ANY CHANCE OF NOW OR BEFORE YOUR APPOINTMENT? -No 6. OFFERED EWA FOR SOONER APPOINTMENT? -Yes 7. PATIENT IS SCHEDULED ON/WITH: -05/14/2025 with Gibran Garrett in [place] as requested by patient. 8. WHO CALLED TO SCHEDULE APPOINTMENT? -Patient documented in this encounter Plan of Treatment Upcoming Encounters Date Type Department Care Team (Late st Contact Info) Description 05/14/2025 1:00 PM EDT Office Visit [facility] [place] [address] [place] [phone] Gibran Garrett, PAJuniorC [address] [facility], [facility] [address] [place] [address] 06/20/2025 9:20 AM EDT Telemedicine [facility] [address] [place] [address] Maria Elena Sanchez APRN-CNP [address] [place] [phone] documented as of this encounter Visit Diagnoses Not on filedocumented in this encounter Additional Health Concerns Assessment Noted Time PHQ-9 Depression Total Score: 1 05/05/20 25 2:45 PM EDT documented as of this encounter Care Teams Technology Teacher Relationship Specialty Start Date End Date Maria Elena Sanchez APRN-CNP PCP - General Nurse Practitioner 11/04/24 documented as of this encounter
--- OUTSIDE RECORDS SUMMARY | 2025-05-13 14:32 | XMS_ITS | Encounter Summary ---
Author Organization [facility] [employer] [facility] tem Address [facility][id number] [address] [place] [address] Care Team Providers Care Corporate Statistical Financial Analyst Name Role Phone Maria Elena Sanchez JARAD-HARNESS BUILDER Primary Care Provider Reason for Visit * Reason Onset Date Comments Medication Problem 02/26/2024 Encounter Details Date Type Department Care Team (Late st Contact Info) Description 02/26/2024 Telephone [facility] [address] [facility] [place] [address] [place] [address] Meeta Cosme CNA Medication Problem Social History Tobacco Use Types Packs/Day Years [...] Telephone Encounter - Meeta Cosme CNA - 02/26/2024 8:49 AM EDT Annia called to inform provider her insurance does not cover the doxepin. Mark is on the coveredlist they provided her. She would like Mark sent to [facility]. * Telephone Encounter - ASHELY Nash - 02/26/2024 8:49 AM EDT We will discuss at our appointment today documented in this encounter Plan of Treatment Upcoming Encounters Date Type Department Care Team (Late st Contact Info) Description 05/14/2025 1:00 PM EDT Office Visit [facility] [place] [address] [place] [address] Gibran Garrett, PALupillo [address] [facility] [address] [place] [address] 06/20/2025 9:20 AM EDT Telemedicine [facility] [address] [facility] [place] [address] Maria Elena Sanchez APRN-CNP [address] [place] [phone] documented as of this encounter Visit Diagnoses Not on filedocumented in this encounter Additional Health Concerns Infection Onset Date Last Indicated Resolved Time COVID-19 Rule-Out 10/04/2024 10/04/2024 10/04/2024 11:15 AM EST Assessment Noted Time PHQ-9 Depression Total Score: 9 01/22/20 11:20 AM EDT documented as of this encounter Care Teams Corporate Statistical Financial Analyst Relationship Specialty Start Date End Date Maria Elena Sanchez APRN-CNP PCP - General Nurse Practitioner 11/04/24 documented as of this encounter
--- OUTSIDE RECORDS SUMMARY | 2025-05-13 14:32 | XMS_ITS | Encounter Summary ---
Author Organization [employer] tem Address [facility] [place]-[id number] [address] [place] [address] Care Team Providers Care Goat Driver Name Role Phone SanchezPhuong leeanup ABRAHAM-ASSOCIATE PROFESSOR OF ART HISTORY Primary Care Provider Encounter Details Date Type Department Care Team (Late st Contact Info) Description 09/04/2024 Telephone [facility] [address] [place] [address] Ranjan Amaral CMA Social History [...] got money to buy more. Never True 08/16/2024 Within the past 12 months th e food we bought just didn't last and we didn't have money to get more. Never True 08/16/2024 Purpose - Life Answer Date Recorded Purpose [...] Telephone Encounter - Ranjan Amaral CMA - 09/04/2024 1:12 PM EDT Patient called into the office stating she was able to get an appointment with GI to see if her issues she is having is related to chrones. At the time of the call she stated that she dowell brought up to the GI office at time of call that sheis getting bruises all over and they seem to be getting worse. She stated that the GI office advised her to reach out to PCP office and see what provider thought. Please advise documented in this encounter Plan of Treatment Upcoming Encounters Date Type Department Care Team (Late st Contact Info) Description 05/14/2025 1:00 PM EDT Office Visit [facility] [place] [address] [address] Gibran Garrett PA-C [address] [facility] [address] [place] [address] 06/20/2025 9:20 AM EDT Telemedicine [facility] [address] [facility] [place] [place] [address] Maria Elena Sanchez APRN-ASSOCIATE PROFESSOR OF ART HISTORY [address] [place], [place] [address] documented as of this encounter Visit Diagnoses Not on filedocumented in this encounter Additional Health Concerns Infection Onset Date Last Indicated Resolved Time COVID-19 Rule-Out 10/04/2024 10/04/2024 10/04/2024 11:15 AM EST Assessment Noted Time PHQ-9 Depression Total Score: 9 08/16/20 8:57 AM EDT documented as of this encounter Care Teams Goat Driver Relationship Specialty Start Date End Date Maria Elena Sanchez APRN-ASSOCIATE PROFESSOR OF ART HISTORY PCP - General Nurse Practitioner 11/04/24 documented as of this encounter
--- OUTSIDE RECORDS SUMMARY | 2025-05-13 14:32 | XMS_ITS | Encounter Summary ---
Author Organization [facility] tem Address [facility] [place]-[id number] [address] [place] [address] Care Team Providers Care Physical Therapy Nurse Name Role Phone Maria Elena Sanchez APRN-CRYSTAL SLICER Primary Care Provider Reason for Visit * Reason Onset Date Comments Med Refill 04/11/2025 Encounter Details Date Type Department Care Team (Late st Contact Info) Description 04/11/2025 Refill [facility] [address] [place] [address] Maria Elena Sanchez APRN-CNP [address], [place] [address] Generalized anxiety disorder with panic attacks Social [...] got money to buy more. Never True 04/15/2025 Within the past 12 months th e food we bought just didn't last and we didn't have money to get more. Never True 04/15/2025 Purpose - Life Answer Date Recorded Purpose and direction in life Unknown Comments No Sex and Gender Information Value Date Recorded Sex Assigned at Female 02/08/2024 9:42 PM EDT Legal Sex Female 1:40 PM EDT Gender Identity Female 02/08/2024 9:42 PM EDT Sexual Orientation Straight 02/08/2024 9: 42 PM EDT documented as of this encounter Miscellaneous Notes * Telephone Encounter - ASHELY Nash - 04/11/2025 9:41 AM EDT We have appt Monday. 04/15. documented in this encounter Plan of Treatment Upcoming Encounters Date Type Department Care Team (Late st Contact Info) Description 05/14/2025 1:00 PM EDT Office Visit [facility] [place] [address] [place] [address] Gibran Garrett PA-C [address] [facility] [place] [address] [place] [address] 06/20/2025 9:20 AM EDT Telemedicine [facility] [address] [place] [address] Maria Elena Sanchez APRN-CNP [address] [place] [address], [place] [address] documented as of this encounter Visit Diagnoses Diagnosis Generalized anxiety disorder with panic attacks documented in this encounter Additional Health Concerns Assessment Noted Time PHQ-9 Depression Total Score: 0 03/24/20 25 10:16 AM EDT documented as of this encounter Care Teams Physical Therapy Nurse Relationship Specialty Start Date End Date Maria Elena Sanchez APRN-ALBERT PCP - General Nurse Practitioner 11/04/24 documented as of this encounter
--- OUTSIDE RECORDS SUMMARY | 2025-05-13 14:32 | XMS_ITS | Encounter Summary ---
Author Organization [employer] tem Address [facility] [place]-[id number] [address] [place] [address] Care Team Providers Care Carpenter Railcar Name Role Phone Maria Elena Sanchez CHANNEL DEVELOPMENT DIRECTOR-SUPERVISOR RIDES Primary Care Provider Encounter Details Date Type Department Care Team (Late st Contact Info) Description 10/16/2023 Telephone [facility]/Pediatrics [address] [facility] 1 [place] [address] Maria Elena Sanchez [facility] [address] [place] [address], [facility] [address] Social History Tobacco Use Types Packs/Day Years Used Date Smoking Tobacco: Former Cigarettes Smokeless Tobacco: Never Alcohol Use Standard Drinks/Week Comments No 0 (1 standard drink = 0.6 oz pur e alcohol) occcasional PHQ-2 Answer Date Recorded Total Score 14 10/16/2023 Childcare Answer Date Recorded Childcare Unknown 04/15/2019 [...] encounter Miscellaneous Notes * Telephone Encounter - Gladys Kim - 10/16/2023 1:02 PM EST Patient called and said that the pharmacy need you to call them to say if she can get her ativan filled sooner than they think it should be filled. Thanks, * Telephone Encounter - ASHELY Nash - 10/16/2023 1:02 PM EST Ranajn please let me know if I need to speak to them * Telephone Encounter - Ranjan Amaral CMA - 10/16/2023 1:02 PM EST Pharmacy was called and given authorization. Patient was notified as well * Telephone Encounter - ASHELY Nash - 10/16/2023 1:02 PM EST Thank you! documented in this encounter Plan of Treatment Upcoming Encounters Date Type Department Care Team (Late st Contact Info) Description 05/14/2025 1:00 PM EDT Office Visit [facility] [place] [address] [place] [address] Gibran Garrett, PAJuniorC [address] [facility], [facility] [address] [place] [address] 06/20/2025 9:20 AM EDT Telemedicine [facility] [address] [place] [address] [place] [address] Maria Elena Sanchez APRN-CNP [address] [place] [address] documented as of this encounter Visit Diagnoses Not on filedocumented in this encounter Additional Health Concerns Infection Onset Date Last Indicated Resolved Time COVID-19 Rule-Out 10/04/2024 10/04/2024 10/04/2024 11:15 AM EST Assessment Noted Time PHQ-9 Depression Total Score: 14 023 10:39 AM EST documented as of this encounter Care Teams Carpenter Railcar Relationship Specialty Start Date End Date Maria Elena Sanchez APRN-CNP PCP - General Nurse Practitioner 11/04/24 documented as of this encounter
--- OUTSIDE RECORDS SUMMARY | 2025-05-13 14:32 | XMS_ITS | Encounter Summary ---
Author Organization [employer] tem Address [facility] [place]-[id number] [address] [place] [address] Care Team Providers Care Visual Education Director Name Role Phone Maria Elena Sanchez WATER MANAGER-[facility] Primary Care Provider Reason for Visit * Reason Comments Med Refill Encounter Details Date Type Department Care Team (Late st Contact Info) Description 10/04/2023 Refill [facility]/Pediatric[facility] [address] [address] Maria Elena Sanchez APRN-AUTO BODY REPAIR TECHNICIAN [address] [place] [address], [facility] [place] [address] Social History Tobacco Use Types Packs/Day Years Used Date Smoking Tobacco: Former Cigarettes Smokeless Tobacco: Never Alcohol Use Standard Drinks/Week Comments No 0 (1 standard drink = 0.6 oz pur e alcohol) occcasional PHQ-2 Answer Date Recorded Total Score 21 09/11/2023 Childcare Answer Date Recorded Childcare Unknown 04/15/2019 Employment Answer Date Recorded Employment Unknown 04/15/2019 Hunger Screening Answer Date Recorded Within the past 12 months we worried whether our food would run out before we got money to buy more. Never True 09/11/2023 Within the past 12 months th e food we bought just didn't last and we didn't have money to get more. Never True 09/11/2023 Purpose - Life Answer Date Recorded Purpose [...] PM EDT Office Visit [facility] [place] [address] [place] [address] Gibran Garrett PA-C [address] [facility], [facility] [address] [place] [address] 06/20/2025 9:20 AM EDT Telemedicine [facility] [address] [facility] [place] [address] Maria Elena Sanchez APRN-CNP [address] [place] [address] documented as of this encounter Visit Diagnoses Not on filedocumented in this encounter Additional Health Concerns Infection Onset Date Last Indicated Resolved Time COVID-19 Rule-Out 10/04/2024 10/04/2024 10/04/2024 11:15 AM EST Assessment Noted Time PHQ-9 Depression Total Score: 21 023 11:07 AM EST documented as of this encounter Care Teams Visual Education Director Relationship Specialty Start Date End Date Maria Elena Sanchez APRN-CNP PCP - General Nurse Practitioner 11/04/24 documented as of this encounter
--- OUTSIDE RECORDS SUMMARY | 2025-05-13 14:32 | XMS_ITS | Encounter Summary ---
Author Organization [employer] tem Address [facility] [place] [place]-[id number] [address] [place] [address] Care Team Providers Care Clinical Genetics Laboratory Chief Name Role Phone Maria Elena Sanchez APRN-PAINTER SUPERVISOR Primary Care Provider Reason for Visit * Reason Onset Date Comments medication increase 10/05/2023 Encounter Details Date Type Department Care Team (Late st Contact Info) Description 10/05/2023 [facility] [address] [facility] 1 [place] [address] Lidya Leon CMA medication increase Social History Tobacco Use Types Packs/Day Years [...] encounter Miscellaneous Notes * Telephone Encounter - Lidya Leon CMA - 10/05/2023 4:13 PM EST Patient called [phone] and is wanting her Effexor increased, patient uses [facility]. * Telephone Encounter - ASHELY Nash - 10/05/2023 4:13 PM EST We can discuss this at her appointment on 10/16/2023. As she will need to be on this dosage I just sent in for at least 4 weeks before we know if it is really working. documented in this encounter Plan of Treatment Upcoming Encounters Date Type Department Care Team (Late st Contact Info) Description 05/14/2025 1:00 PM EDT Office Visit [facility] [place] [address] [place] [address] Gibran Garrett, PA-C [address] [facility] [address] [place] [address] 06/20/2025 9:20 AM EDT Telemedicine [facility] [address] [place] [address] [place] [address] Maria Elena Sanchez APRN-CNP [address] [place] [address] documented as of this encounter Visit Diagnoses Not on filedocumented in this encounter Additional Health Concerns Infection Onset Date Last Indicated Resolved Time COVID-19 Rule-Out 10/04/2024 10/04/2024 10/04/2024 11:15 AM EST Assessment Noted Time PHQ-9 Depression Total Score: 21 023 11:07 AM EST documented as of this encounter Care Teams Clinical Genetics Laboratory Chief Relationship Specialty Start Date End Date Maria Elena Sanchez APRN-CNP PCP - General Nurse Practitioner 11/04/24 documented as of this encounter
--- OUTSIDE RECORDS SUMMARY | 2025-05-13 14:32 | XMS_ITS | Encounter Summary ---
Author Organization [facility] tem Address [facility][id number] [address] [place] [address] Care Team Providers Care Fuel Attendant Name Role Phone Maria Elena Sanchez APRN-POWER PRESS SUPERVISOR Primary Care Provider Reason for Visit * Reason Onset Date Comments Med Refill 04/11/2025 Encounter Details Date Type Department Care Team (Late st Contact Info) Description 04/11/2025 Refill [facility] [address] [place] [address] Maria Elena Sanchez APRN-CNP [address], [facility] [address] Psychophysiological insomnia Social History Tobacco [...] 9:42 PM EDT Sexual Orientation Straight 02/08/2024 9 :42 PM EDT documented as of this encounter Plan of Treatment Upcoming Encounters Date Type Department Care Team (Late st Contact Info) Description 05/14/2025 1:00 PM EDT Office Visit [facility] [place] [address] [place] [address] Gibran Garrett, ISHA [address] [facility] [address] [place] [phone] 06/20/2025 9:20 AM EDT Telemedicine [facility] [address] [facility] [place] [address] Maria Elena Sanchez APRN-CNP [address] [place] [address] documented as of this encounter Visit Diagnoses Diagnosis Psychophysiological insomnia Persistent disorder of initiating or maintaining sleep documented in this encounter Additional Health Concerns Assessment Noted Time PHQ-9 Depression Total Score: 0 03/24/20 25 10:16 AM EDT documented as of this encounter Care Teams Fuel Attendant Relationship Specialty Start Date End Date Maria Elena Sanchez APRN-CNP PCP - General Nurse Practitioner 11/04/24 documented as of this encounter
--- OUTSIDE RECORDS SUMMARY | 2025-05-13 14:32 | XMS_ITS | Encounter Summary ---
Author Organization [facility] tem Address [id number] [address] [place] [address] Care Team Providers Care Dry Can Tender Name Role Phone Maria Elena Sanchez JARAD-MICROECONOMICS PROFESSOR Primary Care Provider Encounter Details Date Type Department Care Team (Late st Contact Info) Description 04/23/2024 [facility]phone [facility] [address] [place] [address] [place] [address] Vicki Lemus CMA Social History Tobacco Use Types Packs/Day [...] encounter Miscellaneous Notes * Telephone Encounter - Vicki Lemus CMA - 04/23/2024 8:05 AM EDT Patient states she was recently on antibiotic,amoxicillin, from ENT just ended it about a week ago but no is feeling she is for sure getting a yeast infection. She said she feels it stated on Monday. She did try OTC Monistat with no relief. She would like to know if PCP can call her in some Diflucan. * Telephone Encounter - ASHELY Nash - 04/23/2024 8:05 AM EDT Rx sent * Telephone Encounter - Vicki Lemus CMA - 04/23/2024 8:05 AM EDT Tried to call patient but no answer so I left a voicemail. documented in this encounter Plan of Treatment Upcoming Encounters Date Type Department Care Team (Late st Contact Info) Description 05/14/2025 1:00 PM EDT Office Visit [facility] [place] [address] [place] [address] Gibran Garrett PA-C [address] [facility] [address] [place] [address] 06/20/2025 9:20 AM EDT Telemedicine [facility] [address] [facility] [place] [address] Maria Elena Sanchez APRN-CNP [address], [place] [address] documented as of this encounter Visit Diagnoses Not on filedocumented in this encounter Additional Health Concerns Infection Onset Date Last Indicated Resolved Time COVID-19 Rule-Out 10/04/2024 10/04/2024 10/04/2024 11:15 AM EST Assessment Noted Time PHQ-9 Depression Total Score: 9 01/22/20 11:20 AM EDT documented as of this encounter Care Teams Dry Can Tender Relationship Specialty Start Date End Date Maria Elena Sanchez APRN-ALBERT PCP - General Nurse Practitioner 11/04/24 documented as of this encounter
--- OUTSIDE RECORDS SUMMARY | 2025-05-13 14:32 | XMS_ITS | Clinical Summary ---
Author Organization [employer] Address [facility] [id number] [address] [place] [address] Care Team Providers Care Grinding And Spraying Supervisor Name Role Phone Maria Elena Sanchez APRN-ALBERT Primary Care Provider Allergies No known active allergies Medications * This document contains information received from the source organization and may not represent a complete record from that organization. albuterol (PROVENTIL HFA;VENTOLIN HFA) 90 mcg/actuation inhaler Inhale 2 puffs as needed. Active ibuprofen (MOTRIN) 800 mg tablet Take 1 tablet (800 mg total) by mouth every 6 (six) hours as needed for pain. 60 tablet 024 Active hyoscyamine (LEVSIN) 0.125 mg SL tablet DISSOLVE 1 TABLET(125 MCG) UNDER THE TONGUE EVERY 4 HOURS NEEDED FOR CRAMPING 30 tablet 025 Active acetaminophen (TYLENOL EXTRA STRENGTH) 500 mg tablet Take 2 tablets (1,000 mg total) by mouth every 6 (six) hours as needed for pain. 100 tablet 2 025 Active loratadine-pseudo ephedrine (CLARITIN-D 24-hour) 10-240 mg per 24 hr tablet Take 1 tablet by mouth in the morning. 30 tablet 2 025 Active ondansetron ODT (ZOFRAN ODT) 4 mg disintegrating tablet Dissolve 1 tablet (4 mg total) on tongue every 8 (eight) hours as needed for nausea for up to 10 doses. 10 tablet 025 Active zolpidem (AMBIEN) 5 mg tabletIndications :Psychophysiologi kg insomnia Take 1 tablet (5 mg total) by mouth nightly as needed for sleep. 30 tablet Active phenazopyridine (PYRIDIUM) 100 mg tablet Take 1 tablet (100 mg total) by mouth 3 (three) times a day as needed. Active loratadine (CLARITIN) 10 mg tablet Take 1 tablet (10 mg total) by mouth in the morning. 30 tablet 2 Active amitriptyline (ELAVIL) 25 mg tablet Take 1 tablet (25 mg total) by mouth nightly. 30 tablet 2 Active amitriptyline (ELAVIL) 10 mg tabletIndications :Anxiety,Generali zed anxiety disorder with panic attacks Take 3 tablets (30 mg total) by mouth nightly. 270 tablet 025 2024 Discontinued LORazepam (ATIVAN) 0.5 mg tabletIndications :Generalized anxiety disorder with panic attacks Take 1 tablet (0.5 mg total) by mouth 2 (two) times a day as needed for anxiety. 60 tablet 025 2024 Discontinued(R eorder) zolpidem (AMBIEN) 5 mg tabletIndications :Psychophysiologi kg insomnia Take 1 tablet (5 mg total) by mouth nightly as needed for sleep. 30 tablet 025 2024 Discontinued(R eorder) LORazepam (ATIVAN) 0.5 mg tabletIndications :Generalized anxiety disorder with panic attacks Take 1 tablet (0.5 mg total) by mouth 2 (two) times a day as needed for anxiety. 60 tablet 025 2024 Discontinued(R eorder) nitrofurantoin, macrocrystal-mono hydrate, (MACROBID) 100 mg capsule Take 1 capsule (100 mg total) by mouth in the morning and 1 capsule (100 mg total) before bedtime. 025 2024 Discontinued(A lternate therapy) fluconazole (DIFLUCAN) 150 mg tablet Take 1 tablet (150 mg total) by mouth in the morning. 025 2024 Discontinued(R eorder) amitriptyline (ELAVIL) 10 mg tabletIndications :Anxiety,Generali zed anxiety disorder with panic attacks Take 1 tablet (10 mg total) by mouth nightly. 025 2024 Discontinued(D ose adjustment) CEPHalexin (KEFLEX) 500 mg capsule Take 1 capsule (500 mg total) by mouth 3 (three) times a day for 7 days. 21 capsule 025 2024 hydrocortisone (HYTONE) 1 % cream Apply 1 Application topically in the morning and 1 Application before bedtime. 30 g 1 025 2024 Discontinued(R eorder) fluconazole (DIFLUCAN) 150 mg tablet Take 1 tablet (150 mg total) by mouth in the morning for 1 day. 1 tablet 025 2024 fluconazole (DIFLUCAN) 150 mg tablet Take 1 tablet (150 mg total) by mouth in the morning. 025 2024 Discontinued(R eorder) LORazepam (ATIVAN) 0.5 mg tabletIndications :Generalized anxiety disorder with panic attacks Take 1 tablet (0.5 mg total) by mouth every 8 (eight) hours as needed for anxiety for up to 14 days. 42 tablet 025 2024 fluconazole (DIFLUCAN) 150 mg tabletIndications :Yeast infection Take 1 tablet (150 mg total) by mouth once for 1 dose. Repeat again in 4 days 1 tablet 025 2024 hydrocortisone (HYTONE) 1 % creamIndications: Facial dermatitis Apply 1 Application topically in the morning and 1 Application before bedtime. Do all this for 7 days. 20 g 1 025 2024 Active Problems Problem Noted Date Diagnosed Date Witnessed seizure-like activity 05/05/2025 Assessment & Plan (05/05/2025 5:13 PM EDT): Patient with seizure-like activity and was evaluated in the emergency room on May 01, 2025. This is patient's third episode of of seizure-like activity in the past 15 years. Patient with scheduled EEG tomorrow. Discussed with patient that as this is the third episode she would benefit from seeing Neurology to help determine whether prophylaxis with seizure medication would be beneficial. Yeast infection 05/05/2025 Assessment & Plan (05/05/2025 5:10 PM EDT): Prescribed fluconazole 150 mg 1 tablet x1 dose. Repeat in 4 days if symptoms still present As patient had recently been on antibiotics Facial dermatitis 05/05/2025 Assessment & Plan (05/05/2025 5:10 PM EDT): Apply 1% hydrocortisone cream topically to face twice daily for 7 days and then stop medication Mild intermittent asthma with acute exacerbation 09/11/2023 Generalized anxiety disorder with panic attacks 09/11/2023 Mild tetrahydrocannabinol (THC) abuse 11/28/2017 History of UTI 11/07/2017 Resolved Problems Problem Noted Date Diagnosed Date Resolved Date Constipation during pregnanc y in second trimester 11/07/2017 05/05/2025 Encounters Date Type Department Care Team Description 05/06/2025 1:00 PM EDT - 05/06/2025 11:59 PM EDT Hospital Encounter [facility] - Neurophysiology [address] [place] [phone] Amadeo Dumont MD Seizure after head injury ([facility]) Discharge Disposition: Home 05/06/2025 Telephone [facility] Neurology, A Department of [address] [place] [address] Marisela Hartley 05/05/2025 2:30 PM EDT Office Visit [facility] Family Medicine [address] [place] [address] [place] [phone] Gregory Muñoz DO Witnessed seizure-like activity ([facility]) (Primary Dx); Yeast infection; Facial dermatitis 05/04/2025 Travel 04/29/2025 10:52 PM EDT - 04/30/2025 1:38 AM EDT Emergency [facility] - Emergency [address] [place] [phone] Lisandro Frank MD Syncope, unspecified syncope type (Primary Dx); Seizure after head injury ([facility]) Discharge Disposition: Home 04/21/2025 8:40 AM EDT Telemedicine [facility] [address] [place] [address] [place] [address] Maria Elena Sanchez LIEUTENANT FIREFIGHTER-DAM TENDER Anxiety (Primary Dx); Generalized anxiety disorder with panic attacks; Psychophysiological insomnia 04/21/2025 Travel 04/15/2025 10:40 AM EDT Telemedicine [facility] [address] [place] [phone] Maria Elena Sanchez LIEUTENANT FIREFIGHTER-DAM TENDER Anxiety; Generalized anxiety disorder with panic attacks 04/15/2025 Travel 04/14/2025 Refill [facility] [address] [place] [address] [place] [phone] Maria Elena Sanchez LIE[employer]ENA[employer] FIREFIGHTER-DAM TENDER Generalized anxiety disorder with panic attacks; Psychophysiological insomnia 04/11/2025 Orders Only [facility] [address] [place] [address] [place] [phone] Maria Elena Sanchez LIE[employer]ENANT FIREFIGHTER-DAM TENDER 04/11/2025 Refill [facility] [address] [place] [address] [place] [address] Maria Elena Sanchez LIE[employer]ENA[employer] FIREFIGHTER[employer]DAM TENDER Psychophysiological insomnia 04/11/2025 Refill [facility] [address] [place] [address] [place] [address] Maria Elena Sanchez LIE[employer]ENA[employer] FIREFIGHTER[employer]DAM TENDER Generalized anxiety disorder with panic attacks 04/04/2025 Orders Only [facility] [address] [place] [address] [place] [address] Maria Elena Sanchez LIEUTENANT FIREFIGHTER[employer]DAM TENDER 04/04/2025 Refill [facility] [address] [place] [address] [place] [phone] Maria Elena Sanchez, [employer]IE[employer]ENA[employer] FIREFIGHTER-DAM TENDER 04/04/2025 Refill [facility] [address] [place] [address] [place] [phone] Maria Elena Sanchez ASHELY 03/24/2025 10:20 AM EDT Office Visit [facility] [address] [place] [phone] Maria Elena Sanchez APRN-CNP Pharyngitis, unspecified etiology (Primary Dx); Upper respiratory tract infection, unspecified type 03/24/2025 Travel 03/07/2025 8:20 AM EDT Telemedicine [facility] Phys[facility] Medicine [address] [place] [phone] Maria Elena Sanchez APRN-CNP Anxiety (Primary Dx); Generalized anxiety disorder with panic attacks; Psychophysiological insomnia; Irritable bowel syndrome with both constipation and diarrhea 03/05/2025 Travel 03/03/2025 [facility] [address] [place] [phone] Lulu Medrano CNA 03/03/2025 [facility] [phone] Lulu Medrano CNA 02/14/[address] [place] [address] [phone] Maria Elena Sanchez APRN-CNP Generalized anxiety disorder with panic attacks; Psychophysiological insomnia from Last 3 Months Family History Medical History Relation Name Comments Hyperlipidemia Father Hypertension Father Diabetes Maternal Grandmother Endometriosis Mother Seizures Mother Relation Name Status Comments Father Alive Maternal Grandmother Mother Alive Paternal Grandfather Social History Tobacco Use Types Packs/Day Years Used Date Smoking Tobacco: Former Cigarettes Smokeless Tobacco: Never Tobacco Cessation:Counseling Given: Not Answered Comments:Currently vapes Alcohol Use Standard Drinks/Week Comments [...] Orientation Straight 02/08/2024 9: 42 PM EDT Last Filed Vital Signs Vital Sign Reading Time Taken Comments Blood Pressure 134/82 05/05/2025 2:47 PM EDT Pulse 83 05/05/2025 2:47 PM EDT Temperature 36.9 C (98.5 F) 05/05/2025 2:47 PM EDT Respiratory Rate 12 04/30/2025 1:15 AM EDT Oxygen Saturation 99% 05/05/2025 2:47 PM EDT Inhaled Oxygen Concentration - - Weight 65.6 kg (144 lb 9.6 oz) 05/05/2025 2:47 P M EDT Height 172.7 cm (5' 8 ) 04/29/2025 10:55 PM EDT Body Mass Index 21.99 04/29/2025 10:55 PM EDT Plan of Treatment Upcoming Encounters Date Type Department Care Team (Late st Contact Info) Description 05/14/2025 1:00 PM EDT Office Visit [facility] [place] [address] [place] [phone] Gibran Garrett, ISHA [address] [facility] [address] [place] [address] 06/20/2025 9:20 AM EDT Telemedicine [facility] [address] [place] [address] Maria Elena Sanchez, LIEUTENANT FIREFIGHTER-DAM TENDER [address] [place] [address] Health Maintenance Due Date Last Done Comments DTaP,Tdap and Td Vaccines (5 - Tdap) 2002 07/31/1995, 1991, 1991, Additional history exists Pap Smear 2012 Influenza Vaccine 07/07/2025 Adult BMI Screening 05/05/2026 05/05/2025 Depression Screening 05/05/2026 05/05/2025 Tobacco Screening 05/05/2026 05/05/2025 Medical Devices Not on file Procedures Procedure Name Priority Date/Time Associated Diagnosis Comments EEG Routine 05/06/2025 2:35 PM EDT Seizure after head injury ([facility]) POCT , URINE (NUCG) Routine 04/30/2025 12:31 AM EDT POCT NURSING URINE MACROSCOPIC UA Routine 04/30/2025 12:30 AM EDT ER EXTRA URINE CULTURE STAT 12:19 AM EDT ER EXTRA URINE STAT 04/30/2025 12:19 AM EDT DRUG SCREEN, URINE STAT 04/30/2025 12 :[address] BRAIN WO CONT STAT 04/30/2025 12:1 1 AM EDT EXTRA TUBES RED TOP Routine 04/30/2025 1 2:02 AM EDT EXTRA TUBES BLUE TOP Routine 04/30/2025 12:02 AM EDT EXTRA TUBES Routine 04/30/2025 12:02 AM EDT TROPONIN I, HIGH SENSITIVITY 0 HOUR STAT 04/30/2025 12:02 AM EDT LACTATE W/ REFLEX STAT 04/30/2025 12: 02 AM EDT PROLACTIN Routine 04/30/2025 12:02 AM EDT ETHANOL STAT 04/30/2025 12:02 AM EDT COMPREHENSIVE METABOLIC PANEL STAT 04/30/2025 12:02 AM EDT TROPONIN I, HIGH SENSITIVITY 0 HOUR STAT 04/30/2025 12:02 AM EDT CBC WITH AUTO DIFFERENTIAL STAT 04/30/2025 12:02 AM EDT ECG 12-LEAD STAT 04/29/2025 11:05 PM EDT PM AMB POCT RAPID STREP A Routine 03/24/2025 12:42 PM EDT Pharyngitis, unspecified etiology from Last 3 Months Results * EEG (05/06/2025 2:35 PM EDT) Narrative MANUALLY TRANSCRIBED RESULTS - 05/06/2025 2:52 PM EDT Images from the original result were not included. ID Routine EEG Report Length of Study: 30 [...] Clinical correlation is recommended. Kylah Motley MD Security Assessor ID Neurology us Amadeo Dumont MD NEUROLOGY ORDERABLES Final Resu lt Performing Organization Address City/[facility]/ZIP Co de Phone Number MANUALLY TRANSCRIBED RESULTS * POCT , urine (04/30/2025 12:31 AM EDT) POC Urine Negative Negative, Indeterminate 04/30/2025 12:[address] [facility] Urine 04/30/2025 12:3 1 AM EDT 04/30/2025 12:29 AM EDT Lisandro Frank MD POINT OF CARE TEST ORDERABLES Final Result Performing Organization Address [facility] Co de Phone Number [facility] [address] [place] [address], * (ABNORMAL) POCT Nursing Urine Macroscopic UA (04/30/2025 12:30 AM EDT) POC Urine Specific [place] 1.020 1.010, 1.015, 1.020, 1.025 04/30/2025 12:[address] [facility] POC Urine Leukocyte Esterase Negative Negative 04/30/2025 12:[address] [facility] Urine Nitrite Negative Negative 04/30/2025 12:[address] [facility] Urine pH 7.0 5.0, 6.0, 6.5, 7.0, 7.5, 8.0, 8.5, 5.5 04/30/2025 12:[address] [facility] Urine Protein 30 mg/dL(A) Negative 04/30/2025 12:[address] [facility] Urine Glucose Negative Negative 04/30/2025 12:[address] [facility] Urine Ketones Negative Negative 04/30/2025 12:[address] [facility] Urine Urobilinogen 0.2 E.U./dL 04/30/2025 12:[address] [facility] Urine Bilirubin Negative Negative 04/30/2025 12:[address] [facility] Urine Blood/HGB Negative Negative 04/30/2025 12:[address] [facility] Urine 04/30/2025 12:3 0 AM EDT 04/30/2025 12:23 AM EDT us Lisandro Frank MD POINT OF CARE TEST ORDERABLES Final Result [address] [place] [address], [place] * Extra Urine Culture (04/30/2025 12:19 AM EDT) Extra Tube Auto Resulted 04/30/2025 2:[address] [facility] Urine Urine specimen collection, clean catch / Unknown 04/30/2025 12:19 AM EDT 04/30/2025 12:26 AM EDT us Lisandro Frank MD URINE ORDERABLES Final Result [address] [place] [address], [place] * Extra Urine (04/30/2025 12:19 AM EDT) Extra Tube Auto Resulted 04/30/2025 2:[address] [facility] Urine Urine / Unknown 04/30/2025 1 2:19 AM EDT 04/30/2025 12:26 AM EDT Lisandro Frank MD URINE ORDERABLES Final Result Performing Organization Address City/State/[facility] Co de Phone Number [facility] [address] [place] [address], * (ABNORMAL) Drug Screen, Urine (04/30/2025 12:19 AM EDT) AMPHETAMINE/METHAM P Negative Negative 04/30/2025 1:[address] [facility] Comment:AMPH/METH screening cut off = 1000 ng/mL COCAINE METABOLITE Negative Negative 2024 1:[address] [facility] Comment:Cocaine screening cu t off value = 300 ng/mL ECSTASY Negative Negative 04/30/2025 1:[address] [facility] Comment:Ecstasy screening cu t off value = 500 ng/mL METHADONE Negative Negative 04/30/2025 1:[address] [facility] Comment:Methadone screening cut off value = 300 ng/mL. OPIATES Negative Negative 04/30/2025 1:[address] [facility] Comment: Opiates screening cut off value = 300 ng/mL This test is used for the detection of codeine, hydrocodone (>1000 ng/mL), morphine and hydromorphone (>900 ng/mL) in urine. OXYCODONE Negative Negative 04/30/2025 1:[address] [facility] Comment: Oxycodone screening cut off value = 300 ng/mL This test is used for the detection of oxycodone and oxymorphone in urine. PHENCYCLIDINE Negative Negative 04/30/2025 1:[address] [facility] Comment:Phencyclidine screen ing cut off value = 25 ng/mL CANNABINOIDS Negative Negative 04/30/2025 1:[address] [facility] Comment:Cannabinoids/THC scr eening cut off value = 50 ng/mL Urine Barbiturates Negative Negative 2024 1:[address] [facility] Comment:Barbiturates screeni ng cut off value = 200 ng/mL BENZODIAZEPINES Positive(A) Negative 04/30/20 1:[address] [facility] Comment:Benzodiazepines scre ening cut off value = 200 ng/mL Urine 04/30/2025 12:1 9 AM EDT 04/30/2025 12:26 AM EDT us Lisandro Frank MD URINE ORDERABLES Final Result [facility] [address] [facility] [place] [address], * CT brain without contrast (04/30/2025 12:11 [...] MD IMG CT ORDERABLES Final Result * Troponin I, High Sensitivity 0 Hour (04/30/2025 12:02 AM EDT) TROPONIN I, HIGH SENSITIVITY 2 <16 ng/L 04/30/2025 12:[address] [facility] Blood Venous blood / Unknown 04/30/2025 12:02 AM EDT 04/30/2025 12:05 AM EDT Lisandro Frank MD LAB BLOOD ORDERABLES Final Res ult [address] [place] [address], [place] * Red Top (04/30/2025 12:02 AM EDT) Extra Tube Auto Resulted 04/30/2025 2:[address] [facility] Blood Venous blood / Unknown 04/30/2025 12:02 AM EDT 04/30/2025 12:05 AM EDT us Lisandro Frank MD LAB BLOOD ORDERABLES Final Res ult Performing Organization Address City/[facility]/ZIP Co de Phone Number [address] [place] [address], [place] * Light Blue Top (04/30/2025 12:02 AM EDT) Extra Tube Auto Resulted 04/30/2025 2:[address] [facility] Blood Venous blood / Unknown 04/30/2025 12:02 AM EDT 04/30/2025 12:05 AM EDT us Lisandro Frank MD LAB BLOOD ORDERABLES Final Res ult Performing Organization Address City/[facility]/ZIP Co de Phone Number [address] [place] [address], [place] * Lactate w/ Reflex (04/30/2025 12:02 AM EDT) LACTATE W/REFLEX 1.2 0.4 - 2.0 mmol/L 04/30/2025 12:[address] [facility] Blood Venous blood / Unknown 04/30/2025 12:02 AM EDT 04/30/2025 12:[address] [facility] - 04/30/2025 12:39 AM EDT Result did not trigger repeat Lactate, re-order if needed. us Lisandro Frank MD LAB BLOOD ORDERABLES Final Res ult [facility] [address] [place] [address], [place] * (ABNORMAL) CBC auto differential (04/30/2025 12:02 AM EDT) WBC 9.4 4 - 11 x10E9/L 04/30/2025 12:[address] [facility] RBC Count 4.13 3.8 - 5.2 X10E12/L 04/30/2025 12:[address] [facility] Hemoglobin 13.2 11.7 - 15.5 g/dL 04/30/2025 12:[address] [facility] Hematocrit 39.1 35 - 47 % 04/30/2025 12:[address] [facility] MCV 95 80 - 100 fL 04/30/2025 12:[address] [facility] MCH 32.1 27 - 34 pg 04/30/2025 12:[address] [facility] MCHC 33.8 32 - 36 g/dL 04/30/2025 12:[address] [facility] RDW 13.2 11.5 - 15 % 04/30/2025 12:[address] [facility] Platelet Count 178 150 - 450 X10E9/L 04/30/2025 12:[address] [facility] MPV 9.1 7 - 12 fL 04/30/2025 12:[address] [facility] Neutrophils % 69.8 % 04/30/2025 12:[address] [facility] Lymphocytes % 18.3 % 04/30/2025 12:[address] [facility] Monocytes % 10.6 % 04/30/2025 12:[address] [facility] Eosinophils % 1.0 % 04/30/2025 12:[address] [facility] Basophils % 0.3 % 04/30/2025 12:[address] [facility] Neutrophils Absolute (A) 6.5 1.5 - 6.6 10*3/uL 04/30/2025 12:[address] [facility] Lymphocytes Absolute 1.7 1.0 - 3.5 10*3/uL 04/30/2025 12:[address] [facility] Monocytes Absolute 1.0(H) 0.0 - 0.9 10*3/uL 04/30/2025 12:[address] [facility] Eosinophils Absolute 0.1 0.0 - 0.4 10*3/uL 04/30/2025 12:[address] [facility] Basophils Absolute 0.0 0.0 - 0.2 10*3/uL 04/30/2025 12:[address] [facility] Differential Type AUTOMATED DIFFERENTIAL 04/30/2025 12:[address] [facility] Blood Venous blood / Unknown 04/30/2025 12:02 AM EDT 04/30/2025 12:05 AM EDT us Lisandro Frank MD LAB BLOOD ORDERABLES Final Res ult [facility] [address] [facility] [place] [address], * Prolactin (04/30/2025 12:02 AM EDT) PROLACTIN 8.2 3.3 - 26.7 ng/mL 04/30/2025 10:24 AM EDT [facility] Blood Venous blood / Unknown 04/30/2025 12:02 AM EDT 04/30/2025 12:05 AM EDT us Lisandro Frank MD LAB BLOOD ORDERABLES Final Res ult [facility] [address] [place] [address], [place] [phone] * Ethanol (04/30/2025 12:02 AM EDT) ETHANOL <0.010 <=0.080 g/dL 04/30/2025 12:[address] [facility] Comment: This report is intended for use in clinical monitoring or management of patients. Blood Venous blood / Unknown 04/30/2025 12:02 AM EDT 04/30/2025 12:05 AM EDT us Lisandro Frank MD LAB BLOOD ORDERABLES Final Res ult [facility] [address] [place] [address], [place] * (ABNORMAL) Comprehensive metabolic panel (04/30/2025 12:02 AM EDT) SODIUM 136 134 - 146 mmol/L 04/30/2025 12:[address] [facility] POTASSIUM 3.9 3.5 - 5.0 mmol/L 04/30/2025 12:[address] [facility] CHLORIDE 109 98 - 109 mmol/L 04/30/2025 12:[address] [facility] CARBON DIOXIDE 21(L) 22 - 32 mmol/L 04/30/2025 12:[address] [facility] ANION GAP 6 5 - 15 mmol/L 04/30/2025 12:[address] [facility] BLOOD UREA NITROGEN 11 5 - 23 mg/dL 04/30/2025 12:[address] [facility] CREATININE 0.64 0.40 - 1.00 mg/dL 04/30/2025 12:[address] [facility] Comment:METHOD TRACEABLE TO IDMS STANDARD GLUCOSE 135(H) 65 - 99 mg/dL 04/30/2025 12:[address] [facility] CALCIUM 8.4(L) 8.5 - 10.5 mg/dL 04/30/2025 12:[address] [facility] TOTAL PROTEIN 6.6 6.0 - 8.0 g/dL 04/30/2025 12:[address] [facility] ALBUMIN 3.6 3.2 - 5.3 g/dL 04/30/2025 12:[address] [facility] ALKALINE PHOSPHATASE 61 39 - 130 U/L 04/30/2025 12:[address] [facility] AST 29 <=41 U/L 04/30/2025 12:[address] [facility] ALT 17 <=31 U/L 04/30/2025 12:[address] [facility] BILIRUBIN,TOTAL 0.4 0.3 - 1.2 mg/dL 04/30/2025 12:[address] [facility] EGFR Non-Race Dependent >90 >=60 ml/min/1.7 3sq.m 04/30/2025 12:[address] [facility] Comment: eGFR not reported due to non-numeric value for Creatinine. Reported eGFR is based on the CKD-EPI 2020 equation that does not use a race coefficient. Blood Venous blood / Unknown 04/30/2025 12:02 AM EDT 04/30/2025 12:05 AM EDT us Lisandro Frank MD LAB BLOOD ORDERABLES Final Res ult [facility] [address] [facility] [place] [address], [place] * ECG 12 lead (04/29/2025 11:05 PM EDT) 04/29/2025 11:0 5 PM EDT Narrative [facility] - 04/30/2025 10:43 PM EDT us Lisandro Frank MD ECG ORDERABLES Final Result [facility] * POCT rapid strep A (03/24/2025 12:42 PM EDT) External Poct Rapid Strep A Negative Negative MANUALLY TRANSCRIBED RESULTS Internal Hoseman Check Completed and Passed Yes MANUALLY TRANSCRIBED RESULTS Swab 03/24/2025 12:4 2 PM EDT Maria Elena Sanchez APRN-ALBERT POINT OF CARE TEST ORDE DIOGO Final Result Performing Organization Address City/[facility]/ZIP Co de Phone Number MANUALLY TRANSCRIBED RESULTS from Last 3 Months Insurance [place] [employer] Care Teams Grinding And Spraying Supervisor Relationship Specialty Start Date End Date Maria Elena Sanchez APRN-CNP PCP - General Nurse Practitioner 11/04/24
[2025-05-14 13:08] LABS: Rapid Plasma Reagin, Quant Non Reactive titer (NonRea<1:1)
== END 2025-05-13 14:23 | disposition home or self-care (01) ==
PROVIDERS: PCP Nurse Practitioner Family; Visit Provider Physician Assistant
DX: Z01.419 Encounter for gynecological examination (general) (routine) without abnormal findings (principal); Z20.2 Contact with and (suspected) exposure to infections with a predominantly sexual mode of transmission
CPT/HCPCS: 36415; 86592; 87340; 87389; 87624; 88175

== ENCOUNTER 2025-05-13 20:01 | Outpatient (REF) | payer OTHER, SELFPAY ==
[2025-05-16 13:08] LABS: Age Gdln ACOG Testing Note (.); IGP, Aptima HPV, rfx 16/18,45 Note (.)
== END 2025-05-13 20:02 | disposition home or self-care (01) ==
LOC: LAB 20:01
PROVIDERS: PCP Nurse Practitioner Family; Visit Provider Physician Assistant
DX: Z01.419 Encounter for gynecological examination (general) (routine) without abnormal findings (principal)
CPT/HCPCS: 87624; 88175

== ENCOUNTER 2025-06-11 08:06 | Day surgery (SDC) | payer OTHER, SELFPAY ==
[2025-06-11] VITALS (11 sets, daily range): BP systolic 106–130; BP diastolic 68–106; PULSE 76–126; TEMP 35.9–36.4; O2SAT 97–100; BMI 21.9
[2025-06-11 08:21] LABS: Hematocrit 37.8 % (36.0-48.0); Hemoglobin 13.2 g/dL (12.0-16.0); Immature Granulocytes Abs Auto 0.02 10^3/uL (0.00-0.03); Immature Granulocytes Pct Auto 0.2 % (0.0-0.5); Lymphocytes Absolute Auto 3.2 10^3/uL (1.2-3.8); Mean Corpuscular HGB Conc 34.9 g/dL (29.9-35.2); Mean Corpuscular Hemoglobin 32.1 pg (26.7-34.0); Mean Corpuscular Volume 92.0 fL (81.0-99.0); Platelet Count 232 10^3/uL (150-450); Red Blood Count 4.11 10^6/uL (4.20-5.40); White Blood Count 10.2 10^3/uL (4.0-11.0)
--- NOTE | 2025-06-11 10:49 | PM.ONB ---
Brief Operative Note Date of procedure: 06/11/25 Pre-op diagnosis general: missed first trimester Post-op diagnosis: same as pre-op Procedure: NAME OF PROCEDURE: [D&C suction ] PROCEDURE: The patient was taken back to the OR where she was given general anesthesia without difficulty. She was then placed in dorsal lithotomy position, prepped and draped in the normal sterile fashion. A weighted speculum was placed in the patient's vagina and the anterior lip of the cervix was identified and grasped with a single-tooth tenaculum. The patient was then gently dilated using Hegar dilators after we had sounded roughly to 8 cm. The suction curette was then tested. The suction curette was then placed in the patient's uterus and products of conception were removed using an 9-Kinyarwanda suction curette. ?Excellent hemostasis was noted. The patient tolerated the procedure well. Sponge, lap, and needle counts were correct x 2. All instruments were then removed from the patient's vagina. The patient was taken to the Recovery Room in stable condition. ?? Anesthesia: MAC Surgeon: Tenzin Chaudhry Estimated blood loss (mL): 10 Pathology: other (products of conception) Condition: stable Disposition: floor Urinary Catheter Management Urinary Catheter Management Urethral: Cath placed during this visit: no
[2025-06-11] MEDS: HYDROMORPHONE HCL 0.5 MG/0.5 ML SYRINGE IV ×2 (11:06→11:16)
--- NOTE | 2025-06-11 11:35 | PC.NURSE ---
Medicaated with Silaudid IV as ordered; peripad dry
--- NOTE | 2025-06-11 12:26 | PC.NURSE ---
Up to bathroom and voids pink tinged urine without diffficulty
[2025-06-11] MEDS: FLUCONAZOLE 150 MG TABLET PO (12:31)
[2025-06-11] MEDS: CEFTRIAXONE IV (12:41)
[2025-06-11] MEDS: SODIUM CHLORIDE 0.9% IV (12:41)
--- NOTE | 2025-06-11 12:46 | PC.NURSE ---
antibiotic infusing as ordered
== END 2025-06-11 13:05 | disposition home or self-care (01) ==
PROVIDERS: PCP Nurse Practitioner Family; Visit Provider Obstetrics & Gynecology
PROC: (CPT 1965; principal; 2025-06-11 10:00)
DX: O02.1 Missed abortion (principal); Z87.891 Personal history of nicotine dependence; Z90.49 Acquired absence of other specified parts of digestive tract; F41.9 Anxiety disorder, unspecified
CPT/HCPCS: 59820; 36415; 84702; 85025; 86850; 86900; 86901; 88305; J0696; J1100; J1171; J1885; J2250; J2405; J2590; J2704; J3010